=== PATIENT | female | born 1965 | race Caucasian/White ===

== ENCOUNTER 2019-11-05 10:43 | Day surgery (SDC) | payer OTHER ==
[~2019-11-05] VITALS: Ht 162.6 cm; Wt 90.7 kg
[2019-11-05] MEDS ORDERED: fentaNYL 0.05 MG/ML VIAL ONE (13:30)
[2019-11-05] MEDS ORDERED: LIDOCAINE 2% 100 MG/5 ML UJET TP ONE (13:30)
[2019-11-05] MEDS ORDERED: KETOROLAC 60 MG/2 ML VIAL IM ONE (14:02)
== END 2019-11-05 15:06 | disposition home or self-care (01) ==
LOC: MDS 10:43 → MTU 10:43 → MDS 15:06
PROVIDERS: ATTEND Internal Medicine Gastroenterology
DX: Z12.11 Encounter for screening for malignant neoplasm of colon (principal); D12.3 Benign neoplasm of transverse colon; D12.5 Benign neoplasm of sigmoid colon; I10 Essential (primary) hypertension; E66.9 Obesity, unspecified; Z80.0 Family history of malignant neoplasm of digestive organs; Z88.8 Allergy status to other drugs, medicaments and biological substances; Z79.899 Other long term (current) drug therapy; Z68.33 Body mass index [BMI] 33.0-33.9, adult; Z90.49 Acquired absence of other specified parts of digestive tract; Z98.890 Other specified postprocedural states
CPT/HCPCS: 45385; J1885; J3010